=== PATIENT | male | born 1960 | race Caucasian/White ===

== ENCOUNTER → 2022-05-11 | Outpatient (CLI) | payer BC ==
[~2022-05-11] MED LIST: HYDR-3490 PO; LOSA25TA13 PO; MULT-90 PO; SIMV40TA20 PO
== END ==
LOC: M LABSMTC 09:12
PROVIDERS: ATTEND Anesthesiology
DX: Z01.812 Encounter for preprocedural laboratory examination (principal); Z11.52 Encounter for screening for COVID-19

== ENCOUNTER 2022-05-14 06:58 | Day surgery (SDC) | payer BC ==
[~2022-05-14] VITALS: Ht 182.9 cm; Wt 106.1 kg
[~2022-05-14 06:58] MED LIST changes: +NS 1,000 ML IV ONE
[2022-05-14] MEDS ORDERED: LIDOCAINE 2% 100MG/5ML SDV (FOR ANES.) As Ordered ONE (07:35)
[2022-05-14] MEDS ORDERED: propofoL 200 MG/20 ML VIAL As Ordered ONE ×2 (07:35→07:41)
[2022-05-14 08:10] VITALS: BP 131/63
== END 2022-05-14 08:10 | disposition home or self-care (01) ==
LOC: M OPP 06:58
PROVIDERS: ATTEND Internal Medicine Gastroenterology
DX: Z12.11 Encounter for screening for malignant neoplasm of colon (principal); D12.6 Benign neoplasm of colon, unspecified; K64.0 First degree hemorrhoids; Z79.02 Long term (current) use of antithrombotics/antiplatelets; Z79.899 Other long term (current) drug therapy; Z88.2 Allergy status to sulfonamides; Z91.018 Allergy to other foods; I10 Essential (primary) hypertension; E78.00 Pure hypercholesterolemia, unspecified